=== PATIENT | female | born 1960 | race Caucasian/White ===

== ENCOUNTER → 2019-07-08 | Outpatient (REF) | payer OTHER, MEDICAID ==
[~2019-07-08] MED LIST: LISI-538 PO; LORA-674 PO; PANT20TA2 PO; PRAV40TA2 PO
== END ==
LOC: M LAB LCGH 11:41
PROVIDERS: ATTEND Family Medicine
DX: Z12.4 Encounter for screening for malignant neoplasm of cervix (principal)

== ENCOUNTER 2019-12-10 12:56 | Day surgery (SDC) | payer OTHER ==
[~2019-12-10] VITALS: Ht 160 cm; Wt 76.2 kg
[~2019-12-10 12:56] MED LIST changes: +LIDOCAINE 2% INJ 100 MG/5 ML SDV (FOR ANES.) As Ordered ONE; +NS 1,000 ML IV ONE; +propofoL 200 MG/20 ML VIAL As Ordered ONE
--- NOTE | 2019-12-10 13:58 | ROOR ---
Patient Name: Jacquelin Church Procedure Date: 12/10/2019 1:39 PM Date of : 1960 Age: 59 Room: [facility] Gender: Female Note Status: Finalized Procedure: Upper GI endoscopy Indications: Heartburn, Chronic cough, Globus sensation Providers: Evan MAURER MD Referring MD: Michelle Holloway MD Requesting Provider: Medicines: Monitored Anesthesia Care Complications: No immediate complications. Procedure: Pre-Anesthesia Assessment: - The heart rate, respiratory rate, oxygen saturations, blood pressure, adequacy of pulmonary ventilation, and response to care were monitored throughout the procedure. The Endoscope was introduced through the mouth, and advanced to the second part of duodenum. The upper GI endoscopy was accomplished without difficulty. The patient tolerated the procedure well. Findings: The examined esophagus was normal. No endoscopic abnormality was evident in the esophagus to explain the patient's complaint of dysphagia. This was biopsied with a cold forceps for evaluation of eosinophilic esophagitis. Very small (insignificant) Hiatal Hernia. The entire examined stomach was normal. The examined duodenum was normal. Impression: - Normal esophagus. No endoscopic esophageal abnormality to explain patient's cough/globus sensation/dysphagia. Biopsied. - Very small (insignificant) Hiatal Hernia. - Normal stomach. - Normal examined duodenum. Recommendation: - Use Protonix (pantoprazole) 20 mg PO BID for 4 months. - Telephone endoscopist for pathology results in 2 weeks. - (the script was sent to your pharmacy on file) Evan Maurer MD Evan MAURER MD 12/10/2019 1:58:10 PM Electronically signed by Evan MAURER MD Number of Addenda: 0 Note Initiated On: 12/10/2019 1:39 PM Estimated Blood Loss: Estimated blood loss: none.
[2019-12-10 14:20] VITALS: BP 128/65
== END 2019-12-10 14:36 | disposition home or self-care (01) ==
LOC: M OPP 12:56
PROVIDERS: ATTEND Internal Medicine Gastroenterology
DX: R12 Heartburn (principal); R13.10 Dysphagia, unspecified; R05 Cough; F45.8 Other somatoform disorders; I10 Essential (primary) hypertension; K21.9 Gastro-esophageal reflux disease without esophagitis; R06.83 Snoring; Z79.899 Other long term (current) drug therapy